=== PATIENT | female | born 1970 | race African-American/Black ===

== ENCOUNTER 2017-02-25 12:54 | Emergency (ER) | payer BC, OTHER ==
[~2017-02-25] VITALS: Ht 154.9 cm; Wt 103.0 kg
[~2017-02-25 12:54] MED LIST: ALBUAER3 INH; AZIT250T3 PO; CYCL1TAB29 PO; DIAZ10 PO; FURO1TAB62 PO; HYDR-3583 PO; LEVO-242 PO; LOSA100T3 PO; MONT10TA2 PO; MUCI30TA2 PO; PHEN37.54 PO; PRED20 PO; PROT40TA PO; SYMB80AE INH; XANA2TAB2 PO
[2017-02-25 12:56] VITALS: BP 171/92; PULSE 87; RESP 14; TEMP 98.2; O2SAT 99
--- NOTE | 2017-02-25 13:14 | PD ---
HPI . acute on chronic neck and upper back pain Chief Complaint: Back/ Neck Pain or Injury Time Seen by Provider: 13:00 Travel History International Travel<30 days: No Contact w/Intl Traveler<30days: No Traveled to known affect area: No History of Present Illness HPI 47-year-old female with history of hypertension, GERD, allergies, asthma, anxiety, chronic pain secondary bulging disc here with complaints of worsening neck/shoulder and upper back pain. Patient says for over the past month and a half she has been having pain in her neck and upper back. She tells me she has been seen by her primary care provider Dr. Subramanian, who has not really done anything about it. Patient says most recently today she went to [facility] and was seen there and was told she would need a CT scan of her upper extremity. She is here telling me that she needs a CT scan. She is complaining of pain in the areas noted above that is severe. She tells me it interfering with her ability to work. She says she is not narcotic seeking and just wants relief and to know what is wrong with her. She denies any recent injury or trauma to the area. [facility] Past Medical History Anemia: Yes Asthma: Yes Anxiety: Yes Depression: Yes Heart Rhythm Problems: No Cardiac Catheterization: No Cardiovascular Problems: Yes (HTN) High Cholesterol: Yes Congestive Heart Failure: No Diabetes: Yes (NO MEDICATIONS) Patient Takes Glucophage: No Diminished Hearing: No Gastrointestinal Disorders: Yes GERD: Yes Herniated Disk: Yes Hypertension: Yes Musculoskeletal: Yes (back and neck) Neurologic: Yes Psychiatric: Yes Reproductive: Yes (FERTILITY ISSUES) Respiratory: Yes (ASTHMA) Immunizations Current: No Sleep Apnea: Yes Triglycerides - High: Yes Tetanus Vaccination: > 5 Years Influenza Vaccination: Yes ?: Not LMP: 01/08/17 : 0 Para: 0 Past Surgical History Cholecystectomy: Yes Coronary Artery Bypass Graft: No Family History Family Myocardial Infarction: No Social History Alcohol Use: Yes (OCCASIONALLY) Tobacco Use: No Substance Use: No Allergies-Medications (Allergen,Severity, Reaction): Coded Allergies: No Known Allergies (Verified , 10/09/16) Reported Meds & Prescriptions Reported Meds & Active Scripts Active Mucinex DM (Dextromethorphan-Guaifenesin) 30-600 Mg Tab 1 Tab PO BID PRN Azithromycin 250 Mg Tab 250 Mg PO DIRECTED Take 2 tabs (500 mg) on day 1 then 1 tab daily x 4 days. Prednisone 20 Mg Tab 40 Mg PO DAILY 4 Days Reported Flexeril (Cyclobenzaprine HCl) 10 Mg Tab 10 Mg PO TID PRN Valium (Diazepam) 10 Mg Tab 10 Mg PO HS PRN Lasix (Furosemide) 20 Mg Tab 10 Mg PO TID PRN Lutera (Levonorgestrel-Ethinyl Estradiol) 0.1-20 mg-mcg Tab 1 Tab PO DAILY Phentermine (Phentermine HCl) 37.5 Mg Cap 18.75 Mg PO DAILY Protonix (Pantoprazole Sodium) 40 Mg Tab 40 Mg PO DAILY Singulair (Montelukast Sodium) 10 Mg Tab 10 Mg PO HS Hydrocodone-Acetaminophen 10-325 mg Tab 1 Tab PO Q6H PRN Losartan-Hydrochlorothiazide 100-12.5 Mg Tab 1 Tab PO DAILY Symbicort Inh (Budesonide/Formoterol Fumarate) 80-4.5 Mcg/Act Aero 2 Puff INH Q12HR Xanax (Alprazolam) 2 Mg Tab 2 Mg PO BID PRN Proair Hfa 8.5 GM Inh (Albuterol Sulfate) 90 Mcg/Act Aer 2 Puff INH Q4-6H PRN 108 mcg/actuation Review of Systems General / Constitutional: No: Fever Eyes: No: Visual changes HENT: No: Headaches Cardiovascular: No: Chest Pain or Discomfort Respiratory: No: Shortness of Breath Gastrointestinal: No: Abdominal Pain Genitourinary: No: Dysuria Musculoskeletal: Positive: Pain (neck and upper back ) Skin: No Rash Neurologic: No: Weakness Psychiatric: No: Depression Endocrine: No: Polydipsia Hematologic/Lymphatic: No: Easy Bruising Physical Exam Narrative GENERAL: AAO x 3, no acute distress, Well-nourished, well-developed patient. SKIN: Warm and dry. No visible rashes or bruising. no palpable masses HEAD: Normocephalic and atraumatic. EYES: No scleral icterus. No injection or drainage. ENT: No nasal drainage noted. Mucous membranes pink. Airway patent. NECK: Supple, trachea midline. No JVD. No c spine tenderness CARDIOVASCULAR: Regular rate and rhythm without murmurs, gallops, or rubs. RESPIRATORY: Breath sounds equal bilaterally. No accessory muscle use. No rhonchi or rales. GASTROINTESTINAL: Abdomen soft, non-tender, nondistended. EXTREMITIES: No cyanosis or edema. FULL ROM b/l UE, normal abduction and adduction, negative rotator cuff tests NEURO: Upper ext b/l strength normal/ managed care liaison strength normal BACK: Nontender without obvious deformity. No CVA tenderness. PSYCH: AAO x 3, normal affect. Data Data Last Documented VS Vital Signs Date Time Temp Pulse Resp B/P Pulse Ox O2 Delivery O2 Flow Rate FiO2 02/25/17 12:56 98.2 87 14 171/92 99 Orders Orphenadrine Inj (Norflex Inj) (02/25/17 13:15) Ketorolac Inj (Toradol Inj) (02/25/17 13:15) MDM Medical Decision Making Medical Screen Exam Complete: Yes Emergency Medical Condition: Yes Medical Record Reviewed: Yes Differential Diagnosis acute on chronic neck and back pain, cervical radiculopathy, less likely c spine fracture Narrative Course 47-year-old female with history of hypertension, GERD, allergies, asthma, anxiety, chronic pain secondary bulging disc here with complaints of worsening neck/shoulder and upper back pain. Patient says for over the past month and a half she has been having pain in her neck and upper back. She tells me she has been seen by her primary care provider Dr. Subramanian, who has not really done anything about it. Patient says most recently today she went to [facility] and was seen there and was told she would need a CT scan of her upper extremity. She is here telling me that she needs a CT scan. She is complaining of pain in the areas noted above that is severe. She tells me it interfering with her ability to work. She says she is not narcotic seeking and just wants relief and to know what is wrong with her. She denies any recent injury or trauma to the area. Patient seen and examined. I do not see any significant findings on her physical exam. I've explained to her that unfortunately I do not see that CT scan is warranted. She does not meet criteria for C-spine imaging per nexus rules. I've advised that ultimately her best bet would be to proceed with an outpatient MRI. It is possible she may have some sort of cervical radiculopathy. She seems to be very upset and tells my nurse that I am not listening to her. I explained that unfortunately this is an issue that can be followed as an outpatient and does not require emergent MRI. Toradol and Norflex in the ED. I offered muscle relaxers for discharge and she declined. I advised patient that she needs to make an appointment with her primary care provider for further workup and recommendations. Diagnosis Primary Impression: Chronic pain Qualified Code: G89.29 - Other chronic pain Additional Impression: Neck pain Patient Instructions: General Instructions Additional Instructions: Please follow-up with her primary care provider for further recommendations and workup. Med/Other Pt SpecificInfo: No Change to Meds Disposition: 01 DISCHARGE HOME Condition: Stable Jimena Schmitz February 25, 2017 13:14 Jimena Schmitz February 25, 2017 13:14
[2017-02-25] MEDS ORDERED: KETOROLAC TROMETHAMINE 60 MG/2 ML (IM) VIAL IM ONE (13:15)
[2017-02-25] MEDS ORDERED: ORPHENADRINE INJ 60 MG/2 ML AMP IM ONE (13:15)
== END 2017-02-25 13:38 | disposition home or self-care (01) ==
LOC: NEPK 12:54
DX: G89.29 Other chronic pain (principal); M54.2 Cervicalgia; M25.519 Pain in unspecified shoulder; J45.909 Unspecified asthma, uncomplicated; D64.9 Anemia, unspecified; I10 Essential (primary) hypertension; E11.9 Type 2 diabetes mellitus without complications
CPT/HCPCS: 96372; 99283; J1885; J2360

== ENCOUNTER 2017-03-19 23:11 | Emergency (ER) | payer OTHER ==
[2017-03-19 23:12] VITALS: BP 170/96; PULSE 94; RESP 16; TEMP 98.9; O2SAT 100
[2017-03-20] MEDS ORDERED: TETANUS/DIPHTHERIA TOXOID ADULT 0.5 ML VIAL IM ONE (00:30)
--- NOTE | 2017-03-20 00:35 | PD ---
HPI Chief Complaint: Laceration/Skin Injury Time Seen by Provider: 00:23 Travel History International Travel<30 days: No Contact w/Intl Traveler<30days: No Traveled to known affect area: No History of Present Illness HPI Patient is a 43-year-old female presenting to emergency for evaluation of a laceration to her left thumb that she sustained while cutting an onion this evening. She also reports left neck and jaw pain that started after she cut herself. She states her jaw feels sore when she opens and closes it. She denies any dysphagia, sore throat, chest pain, shortness of breath, headache. She is uncertain when her last tetanus vaccine was administered. PFSH Past Medical History Anemia: Yes Asthma: Yes Anxiety: Yes Depression: Yes Heart Rhythm Problems: No Cardiac Catheterization: No High Cholesterol: Yes Congestive Heart Failure: No Diabetes: Yes (NO MEDICATIONS) Patient Takes Glucophage: No Diminished Hearing: No GERD: Yes Herniated Disk: Yes Hypertension: Yes Musculoskeletal: Yes (back and neck) Neurologic: Yes Psychiatric: Yes Immunizations Current: No Sleep Apnea: Yes Triglycerides - High: Yes ?: Not : 0 Para: 0 Past Surgical History Cholecystectomy: Yes Coronary Artery Bypass Graft: No Social History Alcohol Use: Yes (OCCASIONALLY) Tobacco Use: No Substance Use: No Allergies-Medications (Allergen,Severity, Reaction): Coded Allergies: No Known Allergies (Verified , 10/09/16) Reported Meds & Prescriptions Reported Meds & Active Scripts Active Mucinex DM (Dextromethorphan-Guaifenesin) 30-600 Mg Tab 1 Tab PO BID PRN Azithromycin 250 Mg Tab 250 Mg PO DIRECTED Take 2 tabs (500 mg) on day 1 then 1 tab daily x 4 days. Prednisone 20 Mg Tab 40 Mg PO DAILY 4 Days Reported Flexeril (Cyclobenzaprine HCl) 10 Mg Tab 10 Mg PO TID PRN Valium (Diazepam) 10 Mg Tab 10 Mg PO HS PRN Lasix (Furosemide) 20 Mg Tab 10 Mg PO TID PRN Lutera (Levonorgestrel-Ethinyl Estradiol) 0.1-20 mg-mcg Tab 1 Tab PO DAILY Phentermine (Phentermine HCl) 37.5 Mg Cap 18.75 Mg PO DAILY Protonix (Pantoprazole Sodium) 40 Mg Tab 40 Mg PO DAILY Singulair (Montelukast Sodium) 10 Mg Tab 10 Mg PO HS Hydrocodone-Acetaminophen 10-325 mg Tab 1 Tab PO Q6H PRN Losartan-Hydrochlorothiazide 100-12.5 Mg Tab 1 Tab PO DAILY Symbicort Inh (Budesonide/Formoterol Fumarate) 80-4.5 Mcg/Act Aero 2 Puff INH Q12HR Xanax (Alprazolam) 2 Mg Tab 2 Mg PO BID PRN Proair Hfa 8.5 GM Inh (Albuterol Sulfate) 90 Mcg/Act Aer 2 Puff INH Q4-6H PRN 108 mcg/actuation Review of Systems Except as stated in HPI: all other systems reviewed are Neg Musculoskeletal: Positive: Myalgias Skin: Positive Other (laceration) Physical Exam Narrative GENERAL: Well-nourished, well-developed patient. SKIN: Focused skin assessment warm/dry. 1 cm superficial abrasion to left thumb on the palmar aspect just over the DIP joint. No active bleeding noted. Patient is neurovascularly intact. HEAD: Normocephalic. ENT: Mucosa pink and moist. No erythema or exudates. No uvular edema. No uvular , palatal, or tonsillar deviation. Airway patent. EYES: No scleral icterus. No injection or drainage. NECK: Supple, trachea midline. No JVD or lymphadenopathy. CARDIOVASCULAR: Regular rate and rhythm without murmurs, gallops, or rubs. RESPIRATORY: Breath sounds equal bilaterally. No accessory muscle use. GASTROINTESTINAL: Abdomen soft, non-tender, nondistended. MUSCULOSKELETAL: No cyanosis, or edema. Mild tenderness to palpation over the left TMJ, no crepitus noted. BACK: Nontender without obvious deformity. No CVA tenderness. Data Data Last Documented VS Vital Signs Date Time Temp Pulse Resp B/P Pulse Ox O2 Delivery O2 Flow Rate FiO2 03/19/17 23:12 98.9 94 16 170/96 100 Room Air Orders Tetanus/Diphtheria Tox Adult (Tetanus/Di (03/20/17 00:30) Support Splint (03/20/17 00:21) MDM Medical Decision Making Medical Screen Exam Complete: Yes Emergency Medical Condition: Yes Interpretation(s) Vital Signs Date Time Temp Pulse Resp B/P Pulse Ox O2 Delivery O2 Flow Rate FiO2 03/19/17 23:12 98.9 94 16 170/96 100 Room Air Differential Diagnosis Abrasion versus laceration versus muscle strain versus muscle spasm versus other Narrative Course Patient is a 47-year-old female presenting for evaluation of a cut to her left thumb and jaw pain. Wound to left thumb is superficial, Band-Aid was applied, wound is clean, patient is neurovascularly intact. Tetanus vaccine will be updated today. Pain in jaw started after she cut her finger likely from clenching her jaw. Patient has no other symptoms to suggest cardiac etiology. She was encouraged to keep wound clean and dry, apply Band-Aid, she will be given a finger splint for comfort. She was encouraged return to emergency department for any new or worsening symptoms. Patient verbalized understanding of instructions. Patient stable for discharge. Diagnosis Primary Impression: Finger abrasion Qualified Code: S60.419A - Finger abrasion, initial encounter Additional Impression: Strain of jaw Referrals: Primary Care Physician Patient Instructions: Abrasion (ED), General Instructions Additional Instructions: Keep wound clean and dry, he may apply topical antibiotic ointment and Band-Aid. Follow-up with your primary doctor Return to emergency department for any new or worsening symptoms Med/Other Pt SpecificInfo: No Change to Meds Disposition: 01 DISCHARGE HOME Condition: Stable Katy Scanlon Mar 20, 2017 00:35
== END 2017-03-20 01:22 | disposition home or self-care (01) ==
LOC: NEPD 23:11
DX: S61.012A Laceration without foreign body of left thumb without damage to nail, initial encounter (principal); W26.0XXA Contact with knife, initial encounter; Y93.G1 Activity, food preparation and clean up; Y92.9 Unspecified place or not applicable; E78.00 Pure hypercholesterolemia, unspecified; I10 Essential (primary) hypertension; G47.30 Sleep apnea, unspecified; Z23 Encounter for immunization
CPT/HCPCS: 29130; 90471; 90714

== ENCOUNTER 2017-12-11 05:35 | Emergency (ER) | payer SELFPAY ==
[~2017-12-11] VITALS: Ht 154.9 cm; Wt 110.0 kg
[~2017-12-11 05:35] MED LIST changes: +CYCL10TA PO; -CYCL1TAB29 PO; +HUMIBIDDM PO; -MUCI30TA2 PO
[2017-12-11 05:37] VITALS: BP 168/91; PULSE 89; RESP 22; TEMP 98.4; O2SAT 99
[2017-12-11 06:11] VITALS: O2SAT 99
[2017-12-11] MEDS ORDERED: RESP: ALBUTEROL 2.5 MG/IPRATROPIUM 0.5 MG NEB (SCH) NEB ONE (06:15)
--- NOTE | 2017-12-11 06:32 | RADRPT ---
EXAM DATE/TIME: 12/11/2017 06:22 [facility] COMPARISON: CHEST SINGLE AP, September 10, 2016, 22:23. INDICATIONS : Shortness of breath and wheezing MEDICAL HISTORY : Diabetes mellitus type II. Gastroesophageal reflux disease. Hyperthyroidism. SURGICAL HISTORY : Cholecystectomy. ENCOUNTER: Initial ACUITY: 1 day PAIN SCORE: 8/10 LOCATION: Bilateral chest FINDINGS: A single view of the chest demonstrates the lungs to be symmetrically aerated without evidence of mas s, infiltrate or effusion. The cardiomediastinal contours are unremarkable. Osseous structures are intact. CONCLUSION: 1. No acute cardiopulmonary disease. Yuri Back MD on December 11, 2017 at 6:31 Board Certified Radiologist. This report was verified electronically.
[2017-12-11] MEDS ORDERED: LEVOFLOXACIN 750 MG TAB PO ONE (06:45)
[2017-12-11] MEDS ORDERED: predniSONE 20 MG TAB PO ONE (06:45)
[2017-12-11] MEDS ORDERED: LEVA750T9 PO (06:49)
--- NOTE | 2017-12-11 06:49 | PD ---
HPI . Respiratory symptoms Chief Complaint: Respiratory Symptoms Time Seen by Provider: 05:57 Travel History International Travel<30 days: No Contact w/Intl Traveler<30days: No Traveled to known affect area: No History of Present Illness HPI 47-year-old female with history of asthma who notes having recurrent upper respiratory infection symptoms for the past 3-4 weeks, has had multiple rounds of steroids, now feels a churning in her mid chest, worse with cough and worse with lying down, is having difficulty sleeping secondary to same. Patient denies any production of cough, denies any leg swelling or leg pain, has no recent sedentary. Her confounding travel. Patient denies any fever, but does note feeling generally ill. Patient's recently became ill as well and tested positive for the flu. Patient states her symptoms are different than her , which seemed to be more of a gastroenteritis PFSH Past Medical History Narrative Medical Past medical history reviewed Anemia: Yes Asthma: Yes Anxiety: Yes Depression: Yes Heart Rhythm Problems: No Cardiac Catheterization: No Cardiovascular Problems: Yes (HTN) High Cholesterol: Yes Congestive Heart Failure: No Diabetes: Yes (NO MEDICATIONS) Patient Takes Glucophage: No Diminished Hearing: No Gastrointestinal Disorders: Yes GERD: Yes Heparin Induced Thrombocytopen: No Herniated Disk: Yes Hypertension: Yes Musculoskeletal: Yes (back and neck) Neurologic: Yes Psychiatric: Yes Reproductive: Yes (FERTILITY ISSUES) Respiratory: Yes (ASTHMA) Immunizations Current: No Sleep Apnea: Yes Triglycerides - High: Yes ?: Not : 0 Para: 0 Past Surgical History Cholecystectomy: Yes Coronary Artery Bypass Graft: No Family History Family Myocardial Infarction: No Social History Alcohol Use: Yes (OCCASIONALLY) Tobacco Use: No Substance Use: No Allergies-Medications (Allergen,Severity, Reaction): Coded Allergies: No Known Allergies (Verified Adverse Reaction, Unknown, 12/11/17) Reported Meds & Prescriptions Reported Meds & Active Scripts Active Mucinex DM (Dextromethorphan-Guaifenesin) 30-600 Mg Tab 1 Tab PO BID PRN Azithromycin 250 Mg Tab 250 Mg PO DIRECTED Take 2 tabs (500 mg) on day 1 then 1 tab daily x 4 days. Prednisone 20 Mg Tab 40 Mg PO DAILY 4 Days Reported Flexeril (Cyclobenzaprine HCl) 10 Mg Tab 10 Mg PO TID PRN Valium (Diazepam) 10 Mg Tab 10 Mg PO HS PRN Lasix (Furosemide) 20 Mg Tab 10 Mg PO TID PRN Lutera (Levonorgestrel-Ethinyl Estradiol) 0.1-20 mg-mcg Tab 1 Tab PO DAILY Phentermine (Phentermine HCl) 37.5 Mg Cap 18.75 Mg PO DAILY Protonix (Pantoprazole Sodium) 40 Mg Tab 40 Mg PO DAILY Singulair (Montelukast Sodium) 10 Mg Tab 10 Mg PO HS Hydrocodone-Acetaminophen 10-325 mg Tab 1 Tab PO Q6H PRN Losartan-Hydrochlorothiazide 100-12.5 Mg Tab 1 Tab PO DAILY Symbicort Inh (Budesonide/Formoterol Fumarate) 80-4.5 Mcg/Act Aero 2 Puff INH Q12HR Xanax (Alprazolam) 2 Mg Tab 2 Mg PO BID PRN Proair Hfa 8.5 GM Inh (Albuterol Sulfate) 90 Mcg/Act Aer 2 Puff INH Q4-6H PRN 108 mcg/actuation Narrative Medication Allergies and medications reviewed Review of Systems Except as stated in HPI: all other systems reviewed are Neg General / Constitutional: No: Fever Eyes: No: Visual changes HENT: No: Headaches Cardiovascular: No: Chest Pain or Discomfort Respiratory: Positive: Cough, Shortness of Breath, Wheezing, No: Sneezing, Orthopnea, Hemoptysis, Stridor, Night Sweats, Pleuritic Pain Gastrointestinal: No: Abdominal Pain Genitourinary: No: Dysuria Musculoskeletal: No: Pain Skin: No Rash Neurologic: No: Weakness Psychiatric: No: Depression Endocrine: No: Polydipsia Hematologic/Lymphatic: No: Easy Bruising Physical Exam Narrative GENERAL: Awake and alert, oriented 3, no acute distress. Vital signs afebrile normal and stable SKIN: Warm and dry. Color is normal diaphoresis cyanosis or pallor HEAD: Atraumatic. Normocephalic. EYES: Pupils equal and round. No scleral icterus. No injection or drainage. ENT: No nasal bleeding or discharge. Mucous membranes pink and moist. NECK: Trachea midline. No JVD. Supple full range of motion CARDIOVASCULAR: Regular rate and rhythm. S1-S2 no murmurs rubs or gallops RESPIRATORY: Prolonged expiratory phase, wheezing heard all son, rhonchi centrally with forced exhalation, cough only. Equal bilateral excursions. GASTROINTESTINAL: Abdomen soft, non-tender, nondistended. Hepatic and splenic margins not palpable. MUSCULOSKELETAL: Extremities without clubbing, cyanosis, or edema. No obvious deformities. NEUROLOGICAL: Awake and alert. No obvious focal deficit PSYCHIATRIC: Appropriate mood and affect; insight and judgment normal. Data Data Last Documented VS Vital Signs Date Time Temp Pulse Resp B/P (MAP) Pulse Ox O2 Delivery O2 Flow Rate FiO2 12/11/17 06:11 99 21 12/11/17 05:37 98.4 89 22 168/91 (116) Orders Orders Albuterol-Ipratropium Neb (Duoneb Neb) (12/11/17 06:15) Chest, Single Ap (12/11/17 ) Influenzae A/B Antigen (12/11/17 06:01) Levofloxacin (Levaquin) (12/11/17 06:45) Prednisone (Deltasone) (12/11/17 06:45) MDM Medical Decision Making Medical Screen Exam Complete: Yes Emergency Medical Condition: Yes Medical Record Reviewed: Yes Differential Diagnosis Acute bronchitis, upper respiratory infection, pneumonia, influenza Narrative Course Chest x-ray right perihilar infiltrate consistent with early pneumonia. Patient notes interval improvement with albuterol Atrovent treatment. Patient started on Levaquin 750 mg p.o. Patient given 1 dose of prednisone 60 mg p.o. Will not continue secondary to concomitant use of fluoroquinolones and recent use of steroids without significant improvement. Diagnosis Primary Impression: Pneumonia Qualified Codes: J18.1 - Lobar pneumonia, unspecified organism Patient Instructions: Bacterial Pneumonia (ED), General Instructions Additional Instructions: Take Levaquin 750 mg daily for 10 days. Drink plenty of fluids. Albuterol inhaler 2 puffs every 4-6 hours as needed for shortness of breath/wheezing/ cough. Follow-up with your doctor. Return promptly for worsening Scripts Levofloxacin (Levaquin) 750 Mg Tablet 750 MG PO DAILY for Infection, #9 TAB 0 Refills Prov: Olu Ellington MD 12/11/17 Disposition: DISCHARGE HOME Condition: Stable Olu Ellington MD Dec 11, 2017 06:49
[2017-12-11 07:02] VITALS: BP 145/86; PULSE 82; RESP 18; O2SAT 100
[2017-12-11] MEDS ORDERED: ZITHTAB PO (07:29)
[2017-12-11] MEDS ORDERED: MEDR4PAK PO (07:29)
[2017-12-11] MEDS ORDERED: ONDANSETRON HCL 4 MG/2 ML VIAL IM ONE (07:30)
[2017-12-11] MEDS ORDERED: ONDANSETRON HCL 4 MG/2 ML VIAL IV PUSH ONE (07:30)
== END 2017-12-11 07:44 | disposition home or self-care (01) ==
LOC: NEPC 05:35
DX: J18.1 Lobar pneumonia, unspecified organism (principal); J45.909 Unspecified asthma, uncomplicated; I10 Essential (primary) hypertension
CPT/HCPCS: 71045; 87804; 94664; 96372; 99284; J2405; J7512

== ENCOUNTER 2017-12-17 06:26 | Emergency (ER) | payer BC ==
[~2017-12-17] VITALS: Ht 154.9 cm; Wt 106.5 kg
[~2017-12-17 06:26] MED LIST changes: +MEDR4PAK PO; +ZITHTAB PO
[2017-12-17 06:32] VITALS: BP 154/90; PULSE 88; RESP 20; TEMP 98.6; O2SAT 100
[2017-12-17] MEDS ORDERED: FLUT1SPR5 EACH NARE (06:48)
[2017-12-17] MEDS ORDERED: ACETAMINOPHEN 325 MG TAB PO ONE (07:30)
--- NOTE | 2017-12-17 07:32 | PD ---
HPI Chief Complaint: Cold / Flu Symptoms Time Seen by Provider: 07:12 Travel History International Travel<30 days: No Contact w/Intl Traveler<30days: No Traveled to known affect area: No History of Present Illness HPI 47yo F with PMH of asthma presents to the ED with c/o persistent cough and now throat pain since yesterday. Pt was seen on 12/11/17 and was given levaquin for early pneumonia. Pt's official CXR showed no acute cardiopulmonary disease. Pt said her was diagnosed with the flu after and wants to be tested. Denies any fever, drooling, chest pain, sob, n/v, abdominal pain, focal weakness or numbness. PFSH Past Medical History Anemia: Yes Asthma: Yes Anxiety: Yes Depression: Yes Heart Rhythm Problems: No Cardiac Catheterization: No Cardiovascular Problems: Yes (HTN, RBBB) High Cholesterol: Yes Congestive Heart Failure: No Diabetes: Yes (NO MEDICATIONS) Diminished Hearing: No Gastrointestinal Disorders: Yes GERD: Yes Heparin Induced Thrombocytopen: No Herniated Disk: Yes Hypertension: Yes Musculoskeletal: Yes (back and neck) Neurologic: Yes Psychiatric: Yes Reproductive: Yes (FERTILITY ISSUES) Respiratory: Yes (Asthma, Bronchitits) Immunizations Current: No Sleep Apnea: Yes Triglycerides - High: Yes Tetanus Vaccination: < 5 Years Influenza Vaccination: Yes ?: Not LMP: 12/02/17 : 0 Para: 0 Past Surgical History Cholecystectomy: Yes Coronary Artery Bypass Graft: No Social History Alcohol Use: Yes (OCCASIONALLY) Tobacco Use: No Substance Use: No Allergies-Medications (Allergen,Severity, Reaction): Coded Allergies: No Known Allergies (Verified Adverse Reaction, Unknown, 12/17/17) Reported Meds & Prescriptions Reported Meds & Active Scripts Active Deltasone (Prednisone) 20 Mg Tab 20 Mg PO BID 5 Days Ventolin Hfa 18 GM Inh (Albuterol Sulfate) 90 Mcg/Act Aer 2 Puff INH Q4H PRN Reported Flonase Nasal [place] (Fluticasone Nasal [place]) 50 Mcg/Act [place] 100 Mcg EACH NARE BID Flexeril (Cyclobenzaprine HCl) 10 Mg Tab 10 Mg PO TID PRN Valium (Diazepam) 10 Mg Tab 10 Mg PO HS PRN Lasix (Furosemide) 20 Mg Tab 10 Mg PO TID PRN Lutera (Levonorgestrel-Ethinyl Estradiol) 0.1-20 mg-mcg Tab 1 Tab PO DAILY Phentermine (Phentermine HCl) 37.5 Mg Cap 18.75 Mg PO DAILY Protonix (Pantoprazole Sodium) 40 Mg Tab 40 Mg PO DAILY Singulair (Montelukast Sodium) 10 Mg Tab 10 Mg PO HS Hydrocodone-Acetaminophen 10-325 mg Tab 1 Tab PO Q6H PRN Losartan-Hydrochlorothiazide 100-12.5 Mg Tab 1 Tab PO DAILY Symbicort Inh (Budesonide/Formoterol Fumarate) 80-4.5 Mcg/Act Aero 2 Puff INH Q12HR Xanax (Alprazolam) 2 Mg Tab 2 Mg PO BID PRN Proair Hfa 8.5 GM Inh (Albuterol Sulfate) 90 Mcg/Act Aer 2 Puff INH Q4-6H PRN 108 mcg/actuation Review of Systems Except as stated in HPI: all other systems reviewed are Neg Physical Exam Narrative GENERAL: 47yo F not in distress. SKIN: Focused skin assessment warm/dry. HEAD: Atraumatic. Normocephalic. EYES: Pupils equal and round. No scleral icterus. No injection or drainage. ENT: Throat: Clear. Uvula midline. No tonsillar exudate. NECK: Trachea midline. No JVD. No cervical lymphadenopathy ttp. CARDIOVASCULAR: Regular rate and rhythm. No murmur appreciated. RESPIRATORY: Expiratory wheezing bilaterally. Speaking in complete sentences. GASTROINTESTINAL: Abdomen soft, non-tender, nondistended. MUSCULOSKELETAL: No obvious deformities. No clubbing. No cyanosis. No edema. NEUROLOGICAL: Awake and alert. No obvious cranial nerve deficits. Motor grossly within normal limits. Normal speech. PSYCHIATRIC: Appropriate mood and affect; insight and judgment normal. Data Data Last Documented VS Vital Signs Date Time Temp Pulse Resp B/P (MAP) Pulse Ox O2 Delivery O2 Flow Rate FiO2 12/17/17 06:32 98.6 88 20 154/90 (111) 100 Orders Orders Chest, Single Ap (12/17/17 07:26) Albuterol-Ipratropium Neb (Duoneb Neb) (12/17/17 07:30) Prednisone (Deltasone) (12/17/17 09:00) Influenzae A/B Antigen (12/17/17 07:26) Group A Rapid Strep Screen (12/17/17 07:26) Soft Tissue Neck (12/17/17 ) Acetaminophen (Tylenol) (12/17/17 07:30) Strep Culture (Group A) (12/17/17 07:32) MDM Medical Decision Making Medical Screen Exam Complete: Yes Emergency Medical Condition: Yes Differential Diagnosis Asthma exacerbation vs. pneumonia vs. URI vs. influenza Narrative Course 47yo F with asthma here with wheezing and persistent coughing. Pt is well appearing and speaking in complete sentences. Influenza negative. Group A strep negative. CXR negative. Xray soft tissue neck showed degenerative changes cervical spine otherwise negative. Pt given acetaminophen, duonebs x3, and prednisone. Pt reevaluated at bedside and feels better. Normal PO intake. Pt has symbicort at home but needs prescription for ventolin. Return precautions given. Diagnosis Primary Impression: Asthma exacerbation Qualified Codes: J45.31 - Mild persistent asthma with (acute) exacerbation Patient Instructions: General Instructions Departure Forms: Tests/Procedures, Work Release Enter return to work date: Dec 19, 2017 Additional Instructions: Please follow up with your primary care physician in 2-3 days. Return to the ED if symptoms worsen. Med/Other Pt SpecificInfo: Prescription(s) given Scripts Prednisone (Deltasone) 20 Mg Tab 20 MG PO BID for 5 Days, #10 TAB 0 Refills Prov: Shantel Long DO 12/17/17 Albuterol 18 GM Inh (Ventolin Hfa 18 GM Inh) 90 Mcg/Act Aer 2 PUFF INH Q4H Y for SHORTNESS OF BREATH, #1 INHALER 0 Refills Prov: Shantel Long DO 12/17/17 Disposition: 01 DISCHARGE HOME Condition: Stable Shantel Long DO Dec 17, 2017 07:32
[2017-12-17] MEDS: RESP: ALBUTEROL 2.5 MG/IPRATROPIUM 0.5 MG NEB (SCH) INH (07:33)
--- NOTE | 2017-12-17 08:52 | RADRPT ---
EXAM DATE/TIME: 12/17/2017 08:38 [facility] COMPARISON: No previous studies available for comparison. INDICATIONS : Sore throat. Cough. MEDICAL HISTORY : Diabetes mellitus type II. Gastroesophageal reflux disease. Hyperthyroidism. SURGICAL HISTORY : Cholecystectomy. ENCOUNTER: Initial ACUITY: 1 week PAIN SCORE: 4/10 LOCATION: neck. FINDINGS: Two view examination of the soft tissues of the neck demonstrates the hypopharyngeal airway to have a grossly normal configuration. Degenerative changes cervical spine The trachea is midline. No radio paque foreign bodies are seen. CONCLUSION: Degenerative changes cervical spine otherwise negative.. Rogelio Roberts MD FACR on December 17, 2017 at 8:51 Board Certified Radiologist. This report was verified electronically.
--- NOTE | 2017-12-17 08:52 | RADRPT ---
EXAM DATE/TIME: 12/17/2017 08:37 [facility] COMPARISON: CHEST SINGLE AP, December 11, 2017, 6:22. INDICATIONS : <<Cough and shortness of breath. >> MEDICAL HISTORY : Diabetes mellitus type II. Gastroesophageal reflux disease. Hyperthyroid ism. SURGICAL HISTORY : Cholecystectomy. ENCOUNTER: Initial ACUITY: 1 week PAIN SCORE: 2/10 LOCATION: Bilateral chest FINDINGS: A single view of the chest demonstrates the lungs to be symmetrically aerated without evidence of mas s, infiltrate or effusion. The cardiomediastinal contours are unremarkable. Osseous structures are intact. CONCLUSION: No acute disease. Rogelio Roberts MD FACR on December 17, 2017 at 8:51 Board Certified Radiologist. This report was verified electronically.
[2017-12-17] MEDS ORDERED: predniSONE 20 MG TAB PO SCH (09:00)
[2017-12-17] MEDS ORDERED: PRED-503 PO (09:44)
[2017-12-17] MEDS ORDERED: VENTAER INH (09:44)
== END 2017-12-17 10:24 | disposition home or self-care (01) ==
LOC: NEPC 06:26
DX: J45.31 Mild persistent asthma with (acute) exacerbation (principal); K21.9 Gastro-esophageal reflux disease without esophagitis; I10 Essential (primary) hypertension
CPT/HCPCS: 70360; 71045; 87081; 87804; 87880; 94640; 94664; 99284; J7512

== ENCOUNTER 2018-09-09 19:24 | Inpatient (IN) ==
[2018-09-09] MEDS ORDERED: Ketorolac Inj 30 MG/ML (IVP) Vial IV.PUSH ONE (21:20)
[2018-09-09] MEDS ORDERED: Famotidine PF Inj 20 MG/2 ML Vial IV.PUSH ONE (21:20)
[2018-09-09] MEDS ORDERED: Dicyclomine Inj 20 MG/2 ML Ampul IM ONE (21:20)
[2018-09-09] MEDS ORDERED: Sod Chloride 0.9% Inj 1,000 ML IV.CONT SCH (21:30)
--- NOTE | 2018-09-09 21:37 | ED ---
HPI General Chief Complaint: Abdominal Pain Stated Complaint: abdominal pain, vomitting Time Seen by Provider: 09/09/18 21:07 Source: patient Mode of arrival: ambulatory Limitations: no limitations History of Present Illness HPI narrative: 48-year-old female complains of abdominal pain, nausea vomiting diarrhea. Patient dates her symptoms started 5 days ago. Patient was seen in emergency room 5 days ago and again 3 days ago. Patient had blood test done. Patient has CT scan of thoracic abdominal aorta done. Possible pneumonia on the left lower lobe. Patient was discharged home with prescription for Carafate and Z-Alexy. Patient states that the pain got better and get worse again today. Patient has intermittent nausea vomiting diarrhea and upper abdominal pain. Patient stated the pain is cramping pain burning pain and sharp pain localized to upper abdomen and epigastric area. Patient denies any pain radiation. Patient denies any dysuria frequency. Patient denies any vaginal discharge or bleeding. Patient denies any back pain. Patient has history of fibromyalgia, chronic back pain, anxiety, hypertension, asthma, status post cholecystectomy. MD complaint: Reports abdominal pain Onset (ago): day(s) Pain Consistency: intermittent Location: Reports epigastric Severity: moderate Severity scale (1-10): 7 Quality: Reports cramping, aching, sharp and burning Radiation: Reports none Migration to: Reports no migration Relieving factors: nothing Exacerbating factors: nothing Associated symptoms: Reports nausea, vomiting and diarrhea Treatments prior to arrival: Reports prescription analgesics Related Data Home Medications Medication Instructions Recorded Confirmed alprazolam [Xanax] 2 mg PO BID 07/22/18 09/10/18 dextroamphetamine-amphetamine 30 mg PO DAILY 07/22/18 09/10/18 [Adderall] furosemide 20 mg PO DAILY 07/22/18 09/10/18 hydrocodone-acetaminophen 1 tab PO Q6H PRN 07/22/18 09/10/18 levonorgestrel-ethinyl estrad 1 tab PO DAILY 07/22/18 09/10/18 [Aviane] losartan-hydrochlorothiazide 1 tab PO DAILY 07/22/18 09/10/18 pantoprazole 40 mg PO DAILY 07/22/18 09/10/18 diazepam 10 mg PO ACHS PRN 09/10/18 09/10/18 montelukast [Singulair] 10 mg PO QPM 09/10/18 09/10/18 Previous Rx's Medication Instructions Recorded fluticasone [Flonase Allergy 1 spray EACH NARE BID #9.9 g 07/22/18 Relief] dicyclomine 20 mg PO QID #10 tab 09/04/18 Allergies Allergy/AdvReac Type Severity Reaction Status Date / Time No Known Allergies Allergy Verified 09/06/18 19:34 Review of Systems ROS: all other systems reviewed are negative PMFSH History History Provided By: Patient Medical History Medical History Anxiety (Acute) Asthma (Acute) Chronic back pain (Acute) Fibromyalgia (Acute) HTN (hypertension) (Acute) Surgical History Surgical History Hx of cholecystectomy (Acute) Social History Social History Substance History: No History of Abuse Second Hand Smoke Exposure: No Smoking Status: Never smoker How Often Do You Have a Drink Containing Alcohol: Never Recent Travel in [facility] within the Last 8 Weeks: No Recent Out of Country Travel within the Last 8 Weeks: No Exam Narrative Exam Narrative: GENERAL: Well-nourished, well-developed patient. SKIN: Focused skin assessment warm/dry. HEAD: Normocephalic. EYES: No scleral icterus. No injection or drainage. NECK: Supple, trachea midline. No JVD or lymphadenopathy. CARDIOVASCULAR: Regular rate and rhythm without murmurs, gallops, or rubs. RESPIRATORY: Breath sounds equal bilaterally. No accessory muscle use. GASTROINTESTINAL: Abdomen soft, nondistended. Patient has mild diffuse tenderness over epigastric and upper abdomen. No rebound tenderness. No mass. MUSCULOSKELETAL: No cyanosis, or edema. BACK: Nontender without obvious deformity. No CVA tenderness. Neurologic exam normal. Course Initial Documented Vital Signs Temperature 97.9 F 09/09/18 20:23 Pulse Rate 85 09/09/18 20:23 Respiratory Rate 20 09/09/18 20:23 Blood Pressure 172/84 H 09/09/18 20:23 Pulse Oximetry 99 09/09/18 20:23 Last Documented Vital Signs Temperature 97.9 F 09/10/18 11:42 Pulse Rate 88 09/10/18 11:42 Respiratory Rate 18 09/10/18 11:42 Blood Pressure 142/74 H 09/10/18 11:42 Pulse Oximetry 99 09/10/18 11:42 Medical Decision Making MDM Narrative Medical decision making narrative: 48-year-old female with upper abdominal pain , nausea vomiting diarrhea. Normal saline solution 125 cc an hour. Bentyl 20 mg IM. Pepcid 20 mg IV. Zofran 4 mg IV. Toradol 30 mg IV. Medical Screen Exam Complete: Yes Emergency Medical Condition: Yes Differential Diagnosis Differential Diagnosis: Differential diagnosis including gastroenteritis, gastritis, PUD, pancreatitis, colitis, UTI, pyelonephritis, nephrolithiasis, pneumonia. Lab Data Lab results reviewed: Yes I reviewed the patient's lab results. Result diagrams: 09/09/18 21:30 09/09/18 22:25 Lab Results 09/09/18 09/09/18 Range/Units 21:30 22:25 WBC 11.6 H (4.0-11.0) th/mm3 RBC 5.82 H (4.00-5.30) mil/mm3 Hgb 14.1 (11.6-15.3) gm/dL Hct 41.0 (35.0-46.0) % MCV 70.5 L (80.0-100.0) fL MCH 24.3 L (27.0-34.0) pg MCHC 34.5 (32.0-36.0) % RDW 14.1 (11.6-17.2) % Plt Count 292 (150-450) th/mm3 MPV 7.8 (7.0-11.0) fL Neut % (Auto) 75.1 H (16.0-70.0) % Lymph % (Auto) 15.3 (9.0-44.0) % [place] % (Auto) 6.9 (0.0-8.0) % Eos % (Auto) 2.3 (0.0-4.0) % Baso % (Auto) 0.4 (0.0-2.0) % Neut # (Auto) 8.7 H (1.8-7.7) th/mm3 Lymph # (Auto) 1.8 (1.0-4.8) th/mm3 [place] # (Auto) 0.8 (0.0-0.9) th/mm3 Eos # (Auto) 0.3 (0.0-0.4) th/mm3 Baso # (Auto) 0.0 (0.0-0.2) th/mm3 WBC Differential . Differential Comment Auto diff final Sodium 138 (136-145) meq/L Potassium 3.7 (3.5-5.1) meq/L Chloride 102 (98-107) meq/L Carbon Dioxide 32.6 H (21.0-32.0) meq/L Anion Gap 3 L (5-15) meq/L BUN 7 (7-18) mg/dL Creatinine 0.85 (0.50-1.00) mg/dL Estimated GFR 87 L (>89) mL/min Random Glucose 105 (74-106) mg/dL Calcium 7.8 L (8.5-10.1) mg/dL Total Bilirubin 0.3 (0.2-1.0) mg/dL AST 55 H (15-37) U/L ALT 71 H (10-53) U/L Alkaline Phosphatase 69 (45-117) U/L Total Protein 7.1 (6.4-8.2) g/dL Albumin 2.9 L (3.4-5.0) g/dL Lipase 698 H (73-393) U/L Imaging Data Radiologist's impression: Abdomen/Pelvis CT 09/09/18 21:20 CONCLUSION: 1. No acute findings. Previous cholecystectomy. Sigmoid diverticula without diverticulitis. Discharge Plan Discharge Disposition Patient Disposition: 30 Still Patient Discharge Details Diagnosis: Pancreatitis Physicians Team ED Provider: Vasquez Baez Primary Care Provider: Jacy Hamlin Attending Provider: Brian Landin Discharge Interventions Interventions: ED Discharge Assessment Last Done: 09/10/18 05:42 Vital Signs Last Done: 09/09/18 21:53 Status ED Status: Left Department Discharge Information Discharge Date/Time: 09/10/18 03:30
[2018-09-09 21:47] LABS: Baso % (Auto) 0.4 % (0.0-2.0); Eos # (Auto) 0.3 th/mm3 (0.0-0.4); Eos % (Auto) 2.3 % (0.0-4.0); Hemoglobin 14.1 gm/dL (11.6-15.3); Lymph # (Auto) 1.8 th/mm3 (1.0-4.8); Lymph % (Auto) 15.3 % (9.0-44.0); Mean Corpuscular HGB Conc 34.5 % (32.0-36.0); Mean Corpuscular Hemoglobin 24.3 pg (27.0-34.0); Mean Corpuscular Volume 70.5 fL (80.0-100.0); Mean Platelet Volume 7.8 fL (7.0-11.0); Mono # (Auto) 0.8 th/mm3 (0.0-0.9); Mono % (Auto) 6.9 % (0.0-8.0); Neut # (Auto) 8.7 th/mm3 (1.8-7.7); Neut % (Auto) 75.1 % (16.0-70.0); Platelet Count 292 th/mm3 (150-450); Red Blood Count 5.82 mil/mm3 (4.00-5.30); Red Cell Distribution Width 14.1 % (11.6-17.2); White Blood Count 11.6 th/mm3 (4.0-11.0)
[2018-09-09 23:13] LABS: Alanine Aminotransferase 71 U/L (10-53); Albumin 2.9 g/dL (3.4-5.0); Alkaline Phosphatase 69 U/L (45-117); Anion Gap 3 meq/L (5-15); Aspartate Aminotransferase 55 U/L (15-37); Blood Urea Nitrogen 7 mg/dL (7-18); Calcium 7.8 mg/dL (8.5-10.1); Carbon Dioxide 32.6 meq/L (21.0-32.0); Chloride 102 meq/L (98-107); Glomerular Filtration Rate 87 mL/min (>89); Glucose,Random 105 mg/dL (74-106); Lipase 698 U/L (73-393); Potassium 3.7 meq/L (3.5-5.1); Sodium 138 meq/L (136-145); Total Protein 7.1 g/dL (6.4-8.2)
[2018-09-09] MEDS ORDERED: Morphine Sulfate Inj 2 MG/ML Vial IV.PUSH ONE (23:57)
--- NOTE | 2018-09-10 00:11 | CT ---
EXAM DATE: 09/09/2018 11:47 PM EST AGE/SEX: 48 years / Female INDICATIONS: Upper abdominal pain. CLINICAL DATA: This is the patient's initial encounter. Patient reports that signs and symptoms have been present for 1 day and indicates a pain score of 7/10. MEDICAL/SURGICAL HISTORY: Asthma. Hypertension. Cholecystectomy. ORAL CONTRAST: No oral contrast ingested. RADIATION DOSE: 27.14 CTDI (mGy) ; Patient body habitus [place] [facility] [place] 05/27/2018. . TECHNIQUE: Multiple contiguous axial images were obtained through the abdomen and pelvis following b olus infusion of 95 ml Omnipaque 350 (iohexol) nonionic water-soluble contrast as a single exam dos e. No oral contrast ingested. Using automated exposure control and adjustment of the mA and/or kV ac cording to patient size, radiation dose was kept as low as reasonably achievable to obtain optimal di agnostic quality images. DICOM format image data is available electronically for review and comparis on. FINDINGS: Lung bases are clear. No acute findings in the liver, spleen, adrenals, kidneys or pancreas. Previous cholecystectomy. No free fluid. No bowel obstruction. No adenopathy. No acute bony abnormalities. Colonic diverticula without diverticulitis. Small hiatal hernia. Small fat-containing umbilical hernia. CONCLUSION: 1. No acute findings. Previous cholecystectomy. Sigmoid diverticula without diverticulitis. Electronically signed by: Jeff Wilhelm MD 09/10/2018 12:10 AM EST
[2018-09-10] MEDS ORDERED: Bisacodyl 10 MG Supp RECTAL PRN (01:09)
[2018-09-10] MEDS ORDERED: Acetaminophen 325 MG Tablet PO PRN (01:09)
--- NOTE | 2018-09-10 01:11 | P.HPIM ---
History of Present Illness Primary Care Physician: Jacy Hamlin MD History of Present Illness: This is a 48-year-old female with a PMH of Anxiety, Fibromyalgia, Chronic Back Pain, Asthma and HTN who presents the ER with complaints of abdominal pain, nausea, vomiting and diarrhea x5 days. This is her 3rd ER presentation for the same. Seen on 09/04/18 and thought to have gastroenteritis, d/c'd home w/ Zofran and Dicyclomine. Returned on 09/06/18 w/ ongoing complaints, Lipase 72 at that time, CTA Aorta w/ normal aorta, early/mild left base pneumonia, d/c'd w / Carafate and Zithro, presented again today for ongoing complaints. Lipase today 698. Denies fever or chills. On arrival, BP 172/84, HR 85, O2 sat 99% on RA, Afebrile. Chemistry essentially unremarkable. LFTs mildly increased in comparison to previous labs. Lipase 698, previously 72 on 09/06/2018. CT Abdomen/Pelvis with no acute findings. S/p Zofran, Pepcid, Morphine and Bentyl w/ some improvement, however persistent nausea/vomiting. - Diagnosis (1) Pancreatitis (2) Intractable nausea and vomiting (3) Leukocytosis Review of Systems PAST FAMILY HISTORY: Reviewed. No h/o DM or CAD All other systems reviewed negative except as stated in HPI PMFSH - History History Provided By: Patient - Medical History Medical History: Medical History (Last Reviewed 09/09/18 @ 21:30 by Vasquez Baez MD) Anxiety Asthma Chronic back pain Fibromyalgia HTN (hypertension) - Surgical History Surgical History: Surgical History (Last Reviewed 09/09/18 @ 21:31 by Vasquez Baez MD) Hx of cholecystectomy - Tobacco History Second Hand Smoke Exposure: No Smoking Status: Never smoker - Alcohol History How Often Do You Have a Drink Containing Alcohol: Monthly or less - Substance Use History Substance History: Past History - Travel History Recent Travel in the [place] Within the Last 8 Weeks: No Recent Travel Out of the Country Within the Last 8 Weeks: No - Immunization History Tetanus Immunization: >5 Years Medications and Allergies Active Medications: Active Medications Sodium Chloride (Ns Inj) 1,000 mls @ 125 mls/hr IV.CONT .Q8H SUMMER Stop: 09/10/18 05:29 Last Admin: 09/09/18 21:46 Dose: 125 mls/hr Allergies Allergy/AdvReac Type Severity Reaction Status Date / Time No Known Allergies Allergy Verified 09/06/18 19:34 Home Medications Medication Instructions Recorded Confirmed Type alprazolam [Xanax] 2 mg PO BID 07/22/18 09/06/18 History dextroamphetamine-amphetamine 30 mg PO DAILY 07/22/18 09/06/18 History [Adderall] furosemide 20 mg PO DAILY 07/22/18 09/06/18 History hydrocodone-acetaminophen 1 tab PO Q6H PRN 07/22/18 09/06/18 History levonorgestrel-ethinyl estrad 1 tab PO DAILY 07/22/18 09/06/18 History [Aviane] losartan-hydrochlorothiazide 1 tab PO DAILY 07/22/18 09/06/18 History montelukast [Singulair] 5 mg PO QPM 07/22/18 09/06/18 History pantoprazole 40 mg PO DAILY 07/22/18 09/06/18 History Exam Vital signs: Vital Signs 09/09/18 20:23 09/09/18 21:53 Temperature 97.9 F Pulse Rate 85 Respiratory Rate 20 Blood Pressure 172/84 H 178/96 H Pulse Oximetry 99 Intake & Output 09/09/18 09/09/18 09/10/18 06:59 18:59 06:59 Weight 83.915 kg Narrative: PE: GENERAL: Very pleasant young black female in no acute distress. SKIN: Focused skin assessment warm and dry. HEENT: PERRLA, EOMI. No scleral icterus or conjunctival pallor. No lid lag or facial droop. CARDIOVASCULAR: Regular rate and rhythm. No obvious murmurs to auscultation. No chest tenderness to palpation. RESPIRATORY: No obvious rhonchi or wheezing. Clear to auscultation. Breath sounds equal bilaterally. GASTROINTESTINAL: Abdomen soft, mild epigastric tenderness to palpation, nondistended. BS normal. MUSCULOSKELETAL: Extremities without clubbing, cyanosis, or edema. No obvious deformities. NEUROLOGICAL: Awake, alert and oriented x4. No focal neurologic deficits. Moving both upper and lower extremities spontaneously. PSYCHIATRIC: Appropriate mood and affect. Insight and judgment normal. Results - Labs CBC & Chem 7: 09/09/18 21:30 09/09/18 22:25 Labs: Short CBC 09/09/18 Range/Units 21:30 WBC 11.6 H (4.0-11.0) th/mm3 Hgb 14.1 (11.6-15.3) gm/dL Hct 41.0 (35.0-46.0) % Plt Count 292 (150-450) th/mm3 BMP 09/09/18 22:25 Sodium 138 Potassium 3.7 Chloride 102 Carbon Dioxide 32.6 H BUN 7 Creatinine 0.85 Calcium 7.8 L Liver Function 09/09/18 Range/Units 22:25 Total Bilirubin 0.3 (0.2-1.0) mg/dL AST 55 H (15-37) U/L ALT 71 H (10-53) U/L Alkaline Phosphatase 69 (45-117) U/L Albumin 2.9 L (3.4-5.0) g/dL - Imaging Impressions Abdomen/Pelvis CT 09/09/18 21:20 CONCLUSION: 1. No acute findings. Previous cholecystectomy. Sigmoid diverticula without diverticulitis. Caprini VTE Risk Assessment Caprini VTE Risk Assessment: No/Low Risk (score <= 1) Caprini Risk Assessment Model: Point Value = 1 Point Value = 2 Point Value = 3 Point Value = 5 Age 41-60 Minor surgery BMI > 25 kg/m2 Swollen legs Varicose veins or History of unexplained or recurrent spontaneous Oral contraceptives or hormone replacement Sepsis (< 1 month) Serious lung disease, including pneumonia (< 1 month) Abnormal pulmonary function Acute myocardial infarction Congestive heart failure (< 1 month) History of inflammatory bowel disease Medical patient at bed rest Age 61-74 Arthroscopic surgery Major open surgery (> 45 min) Laparoscopic surgery (> 45 min) Malignancy Confined to bed (> 72 hours) Immobilizing plaster cast Central venous access Age >= 75 History of VTE Family history of VTE Factor V Leiden Prothrombin [id number] Lupus anticoagulant Anticardiolipin antibodies Elevated serum homocysteine Heparin-induced thrombocytopenia Other congenital or acquired thrombophilia Stroke (< 1 month) Elective arthroplasty Hip, pelvis, or leg fracture Acute spinal cord injury (< 1 month) Prophylaxis Regimen: Total Risk Factor Score Risk Level Prophylaxis Regimen 0-1 Low Early ambulation 2 Moderate Order ONE of the following: *Sequential Compression Device (SCD) *Heparin 5000 units SQ BID 3-4 Higher Order ONE of the following medications: *Heparin 5000 units SQ TID *Enoxaparin/Lovenox 40 mg SQ daily (WT < 150 kg, CrCl > 30 mL/min) *Enoxaparin/Lovenox 30 mg SQ daily (WT < 150 kg, CrCl > 10-29 mL/min) *Enoxaparin/Lovenox 30 mg SQ BID (WT < 150 kg, CrCl > 30 mL/min) AND/OR *Sequential Compression Device (SCD) 5 or more Highest Order ONE of the following medications: *Heparin 5000 units SQ TID (Preferred with Epidurals) *Enoxaparin/Lovenox 40 mg SQ daily (WT < 150 kg, CrCl > 30 mL/min) *Enoxaparin/Lovenox 30 mg SQ daily (WT < 150 kg, CrCl > 10-29 mL/min) *Enoxaparin/Lovenox 30 mg SQ BID (WT < 150 kg, CrCl > 30 mL/min) AND *Sequential Compression Device (SCD) Assessment and Plan - Assessment (1) Pancreatitis Code(s): K85.90 - Acute pancreatitis without necrosis or infection, unspecified Status: Acute (2) Intractable nausea and vomiting Code(s): R11.2 - Nausea with vomiting, unspecified Status: Acute (3) Leukocytosis Code(s): D72.829 - Elevated white blood cell count, unspecified Status: Acute - Plan A/P: 1. Pancreatitis: Lipase 698, previously 72 on 09/06/18, 3rd ER presentation for similar complaints, CT Abd/Pelvis w/ no acute findings, images reviewed. S/ p Morphine, Zofran, Pepcid and Bentyl w/ some improvement. NPO, IVF, continue analgesics/antiemetics. 2. Intractable NV: secondary to above, Zofran, Compazine as needed, Protonix IV. IVF for hydration. 3. Leukocytosis: WBC 11.6, previously 11.0 on 09/06/18, Afebrile. Will monitor, repeat labs in am. 4. DVT Prophylaxis: SCD/Teds 5. Social work for d/c planning as needed. 6. Case discussed w/ ER physician at length, labs/records/imaging reviewed by me.
[2018-09-10] MEDS: Sod Chloride 0.9% Inj 1,000 ML IV.CONT SCH ×2 (06:00→14:57)
[2018-09-10] MEDS: Senna/Docusate Sodium 8.6/50 MG Tablet PO SCH (08:50)
--- NOTE | 2018-09-10 09:49 | P.PN ---
Subjective Interval history: Follow-up for pancreatitis, abdominal pain, nausea/vomiting, diarrhea. Patient reports feeling slightly better today. States her abdominal pain has improved. She reports occasional nausea, but no vomiting since arrival. She states she continues to have multiple episodes of watery diarrhea daily. She states prior to symptom onset, she was [place] the [place], did eat some chicken, but denies any known sick contacts. She would like to attempt some oral intake today. She has no other medical complaints at this time. Denies any new medications. Denies any NSAID use. Physical Exam Vital signs: Vital Signs 09/09/18 20:23 09/09/18 21:53 09/10/18 03:17 Temperature 97.9 F Pulse Rate 85 80 Respiratory Rate 20 18 Blood Pressure 172/84 H 178/96 H 143/77 H Pulse Oximetry 99 09/10/18 04:00 09/10/18 07:24 Temperature 98.5 F 98.5 F Pulse Rate 81 94 H Respiratory Rate 17 16 Blood Pressure 134/89 129/85 Pulse Oximetry 96 98 Intake & Output 09/09/18 09/10/18 09/10/18 18:59 06:59 18:59 Intake Total 1300 / 1300 Balance 1300 / 1300 Weight 83.915 kg Intake: IV 1000 / 1000 NS Inj 1,000 ML @ 125 mls/hr IV 1000 / 1000 .CONT .Q8H [facility] Rx#:[id number] Other 300 / 300 Other: Other Intake Source Saline Solution Date of Last Bowel Movement 09/10/18 Weight On Admission 83.915 kg Narrative: GENERAL: Well-nourished, well-developed pleasant middle-aged female patient in [facility]. SKIN: Warm and dry. No rash. HEENT: Normocephalic. Atraumatic. Pupils equal and round. Mucous membranes pink and moist. CARDIOVASCULAR: Regular rate and rhythm. No murmur appreciated. RESPIRATORY: No accessory muscle use. Clear to auscultation. Breath sounds equal bilaterally. GASTROINTESTINAL: Abdomen soft, nondistended, mild epigastric TTP. Normoactive bowel sounds x4. MUSCULOSKELETAL: No obvious deformities. Extremities without clubbing, cyanosis , or edema. NEUROLOGICAL: Awake and alert. No obvious cranial nerve deficits. Motor grossly within normal limits. Moving all extremities spontaneously. Normal speech. PSYCHIATRIC: Appropriate mood and affect; insight and judgment normal. Results - Labs CBC & Chem 7: 09/09/18 21:30 09/09/18 22:25 Laboratory Results - last 24 hr 09/09/18 09/09/18 21:30 22:25 WBC 11.6 H RBC 5.82 H Hgb 14.1 Hct 41.0 MCV 70.5 L MCH 24.3 L MCHC 34.5 RDW 14.1 Plt Count 292 MPV 7.8 Neut % (Auto) 75.1 H Lymph % (Auto) 15.3 [place] % (Auto) 6.9 Eos % (Auto) 2.3 Baso % (Auto) 0.4 Neut # (Auto) 8.7 H Lymph # (Auto) 1.8 [place] # (Auto) 0.8 Eos # (Auto) 0.3 Baso # (Auto) 0.0 WBC Differential . Differential Comment Auto diff final Sodium 138 Potassium 3.7 Chloride 102 Carbon Dioxide 32.6 H Anion Gap 3 L BUN 7 Creatinine 0.85 Estimated GFR 87 L Random Glucose 105 Calcium 7.8 L Total Bilirubin 0.3 AST 55 H ALT 71 H Alkaline Phosphatase 69 Total Protein 7.1 Albumin 2.9 L Lipase 698 H - Imaging Impressions Abdomen/Pelvis CT 09/09/18 21:20 CONCLUSION: 1. No acute findings. Previous cholecystectomy. Sigmoid diverticula without diverticulitis. Assessment and Plan - Assessment (1) Pancreatitis Code(s): K85.90 - Acute pancreatitis without necrosis or infection, unspecified Status: Acute (2) Intractable nausea and vomiting Code(s): R11.2 - Nausea with vomiting, unspecified Status: Acute (3) Leukocytosis Code(s): D72.829 - Elevated white blood cell count, unspecified Status: Acute - Plan 48-year-old female with a PMH of Anxiety, Fibromyalgia, Chronic Back Pain, Asthma and HTN who presents the ER with complaints of abdominal pain, nausea, vomiting and diarrhea x5 days. This is her 3rd ER presentation for the same. Seen on 09/04/18 and thought to have gastroenteritis, d/c'd home w/ Zofran and Dicyclomine. Returned on 09/06/18 w/ ongoing complaints, Lipase 72 at that time , CTA Aorta w/ normal aorta, early/mild left base pneumonia, d/c'd w/ Carafate and Zithro, presented again today for ongoing complaints. Lipase today 698. Acute Pancreatitis: Lipase 698, previously 72 on 09/06/18, 3rd ER presentation for similar complaints -CT Abd/Pelvis w/ no acute findings, images reviewed. -S/p Morphine, Zofran, Pepcid and Bentyl w/ some improvement. -Continue Protonix -Kept NPO, now advanced to clear liquid diet today -Give IVF, analgesics/antiemetics prn. -Repeat labs in am Gastroenteritis/Diarrhea: acute, patient with multiple episodes of diarrhea daily -check stool studies -give IVF hydration -monitor for improvement Leukocytosis: WBC 11.6, previously 11.0 on 09/06/18, Afebrile. -Will monitor, repeat labs in am. Anxiety/Fibromyalgia/Chronic Back Pain: chronic -[facility] Prescription Drug Monitoring Database has been queried and verified prior to prescribing the controlled substance. -Continue patient's xanax prn, diazepam prn hs, norco prn DVT Prophylaxis: SCD/Teds (1) Pancreatitis Qualifiers: Chronicity: acute Pancreatitis type: other Acute pancreatitis complication: no infection or necrosis Qualified Code(s): K85.80 - Other acute pancreatitis without necrosis or infection
[2018-09-10] MEDS: Amphetamine/Dextroamphetamine 30 MG Tablet PO SCH (16:29)
[2018-09-10] MEDS: Montelukast 10 MG Tablet PO SCH (17:33)
[2018-09-11] MEDS: Sod Chloride 0.9% Inj 1,000 ML IV.CONT SCH ×3 (00:44→19:27)
[2018-09-11] MEDS: Senna/Docusate Sodium 8.6/50 MG Tablet PO SCH ×3 (00:47→22:37)
[2018-09-11 08:12] LABS: Baso % (Auto) 0.2 % (0.0-2.0); Eos # (Auto) 0.8 th/mm3 (0.0-0.4); Eos % (Auto) 8.5 % (0.0-4.0); Hematocrit 37.7 % (35.0-46.0); Hemoglobin 12.1 gm/dL (11.6-15.3); Lymph # (Auto) 2.3 th/mm3 (1.0-4.8); Lymph % (Auto) 24.8 % (9.0-44.0); Mean Corpuscular HGB Conc 32.1 % (32.0-36.0); Mean Corpuscular Hemoglobin 23.5 pg (27.0-34.0); Mean Corpuscular Volume 73.1 fL (80.0-100.0); Mean Platelet Volume 7.4 fL (7.0-11.0); Mono # (Auto) 0.7 th/mm3 (0.0-0.9); Mono % (Auto) 8.1 % (0.0-8.0); Neut # (Auto) 5.3 th/mm3 (1.8-7.7); Neut % (Auto) 58.4 % (16.0-70.0); Platelet Count 249 th/mm3 (150-450); Red Blood Count 5.16 mil/mm3 (4.00-5.30); Red Cell Distribution Width 14.3 % (11.6-17.2); White Blood Count 9.2 th/mm3 (4.0-11.0)
[2018-09-11 08:31] LABS: Alanine Aminotransferase 53 U/L (10-53); Albumin 2.6 g/dL (3.4-5.0); Anion Gap 6 meq/L (5-15); Aspartate Aminotransferase 31 U/L (15-37); Blood Urea Nitrogen 6 mg/dL (7-18); Calcium 7.3 mg/dL (8.5-10.1); Chloride 105 meq/L (98-107); Glomerular Filtration Rate Greater Than 89 mL/min (>89); Glucose,Random 84 mg/dL (74-106); Lipase 63 U/L (73-393); Sodium 139 meq/L (136-145)
[2018-09-11 08:34] LABS: Alkaline Phosphatase 68 U/L (45-117); Total Protein 6.1 g/dL (6.4-8.2)
[2018-09-11 08:41] LABS: Potassium 2.7 meq/L (3.5-5.1)
--- NOTE | 2018-09-11 10:25 | P.PN ---
Subjective Interval history: Follow-up for pancreatitis, gastroenteritis, hypokalemia, diarrhea. The patient reports continued intractable watery nonbloody diarrhea approximately every 2 hours. States her abdominal pain is improving, just some mild epigastric discomfort. Denies any further nausea or vomiting. Denies fevers or chills. She has tolerated some clear liquids, agrees to advancing to full liquids this morning. Does not feel ready for discharge at this time. Patient did admit today to using BC powder at home for her headaches. Physical Exam Vital signs: Vital Signs 09/10/18 11:42 09/10/18 20:00 09/11/18 00:00 Temperature 97.9 F 98.4 F 99.2 F Pulse Rate 88 87 89 Respiratory Rate 18 18 16 Blood Pressure 142/74 H 160/85 H 126/78 Pulse Oximetry 99 100 95 09/11/18 04:00 09/11/18 08:00 09/11/18 08:30 Temperature 98.3 F 98.1 F Pulse Rate 72 89 Respiratory Rate 20 18 Blood Pressure 142/93 H 109/53 L 170/87 H Pulse Oximetry 94 L 98 Intake & Output 09/10/18 09/11/18 09/11/18 18:59 06:59 18:59 Intake Total 1000 / 1000 1000 / 1000 Balance 1000 / 1000 1000 / 1000 Intake: IV 1000 / 1000 1000 / 1000 NS Inj 1,000 ML @ 100 mls/hr IV 1000 / 1000 1000 / 1000 .CONT .Q10H [facility] Rx#:[id number] Other: # Voids 2 Date of Last Bowel Movement 09/11/18 Narrative: GENERAL: Well-nourished, well-developed pleasant middle-aged female patient in [facility]. SKIN: Warm and dry. No rash. HEENT: Normocephalic. Atraumatic. Pupils equal and round. Mucous membranes pink and moist. CARDIOVASCULAR: Regular rate and rhythm. No murmur appreciated. RESPIRATORY: No accessory muscle use. Clear to auscultation. Breath sounds equal bilaterally. GASTROINTESTINAL: Abdomen soft, nondistended, nontender today. Normoactive bowel sounds x4. MUSCULOSKELETAL: No obvious deformities. Extremities without clubbing, cyanosis , or edema. NEUROLOGICAL: Awake and alert. No obvious cranial nerve deficits. Motor grossly within normal limits. Moving all extremities spontaneously. Normal speech. PSYCHIATRIC: Appropriate mood and affect; insight and judgment normal. Results - Labs CBC & Chem 7: 09/11/18 07:20 09/11/18 07:20 Laboratory Results - last 24 hr 09/10/18 09/11/18 09/11/18 14:13 07:20 07:20 WBC 9.2 RBC 5.16 Hgb 12.1 D Hct 37.7 MCV 73.1 L MCH 23.5 L MCHC 32.1 RDW 14.3 Plt Count 249 MPV 7.4 Neut % (Auto) 58.4 Lymph % (Auto) 24.8 [place] % (Auto) 8.1 H Eos % (Auto) 8.5 H Baso % (Auto) 0.2 Neut # (Auto) 5.3 Lymph # (Auto) 2.3 [place] # (Auto) 0.7 Eos # (Auto) 0.8 H Baso # (Auto) 0.0 WBC Differential . Differential Comment Auto diff final Sodium 139 Potassium 2.7 L* D Chloride 105 Carbon Dioxide 28.0 Anion Gap 6 BUN 6 L Creatinine 0.80 Estimated GFR Greater than 89 Random Glucose 84 Calcium 7.3 L* Calcium Adj for Albumin 7.8 L Total Bilirubin 0.2 AST 31 ALT 53 Alkaline Phosphatase 68 Total Protein 6.1 L D Albumin 2.6 L Lipase 63 L Stl C.difficile DNA Amp Negative St C. diff Tox Epid 027 Negative - Imaging Impressions Abdomen/Pelvis CT 09/09/18 21:20 CONCLUSION: 1. No acute findings. Previous cholecystectomy. Sigmoid diverticula without diverticulitis. Assessment and Plan - Assessment (1) Pancreatitis Code(s): K85.90 - Acute pancreatitis without necrosis or infection, unspecified Status: Acute (2) Intractable nausea and vomiting Code(s): R11.2 - Nausea with vomiting, unspecified Status: Acute (3) Leukocytosis Code(s): D72.829 - Elevated white blood cell count, unspecified Status: Acute - Plan 48-year-old female with a PMH of Anxiety, Fibromyalgia, Chronic Back Pain, Asthma and HTN who presents the ER with complaints of abdominal pain, nausea, vomiting and diarrhea x5 days. This is her 3rd ER presentation for the same. Seen on 09/04/18 and thought to have gastroenteritis, d/c'd home w/ Zofran and Dicyclomine. Returned on 09/06/18 w/ ongoing complaints, Lipase 72 at that time , CTA Aorta w/ normal aorta, early/mild left base pneumonia, d/c'd w/ Carafate and Zithro, presented again today for ongoing complaints. Lipase 698. Acute Pancreatitis: Lipase 698, previously 72 on 09/06/18, 3rd ER presentation for similar complaints -CT Abd/Pelvis w/ no acute findings, images reviewed. -S/p Morphine, Zofran, Pepcid and Bentyl w/ some improvement. -Continue Protonix -Give IVF, analgesics/antiemetics prn. -Repeat labs show improvement with lipase 63 -Kept NPO initially, now advanced to full liquid diet today Gastroenteritis/Diarrhea: acute, patient with multiple episodes of diarrhea daily -C. difficile negative, stool studies negative for enteric pathogens -Continue IVF hydration -Start lactinex tid and Imodium prn -monitor for improvement Hypokalemia: K 2.7 today, secondary to diarrhea -give IV KCl and po KCl replacement -check magnesium -repeat labs in am Leukocytosis: WBC 11.6, previously 11.0 on 09/06/18, Afebrile. -repeat labs show improvement with WBC 9.2K Anxiety/Fibromyalgia/Chronic Back Pain: chronic -[facility] Prescription Drug Monitoring Database has been queried and verified prior to prescribing the controlled substance. -Continue patient's xanax prn, diazepam prn hs, norco prn DVT Prophylaxis: SCD/Teds Discharge Planning: Discharge pending further clinical improvement, likely d/c 09/12. (1) Pancreatitis Qualifiers: Chronicity: acute Pancreatitis type: other Acute pancreatitis complication: no infection or necrosis Qualified Code(s): K85.80 - Other acute pancreatitis without necrosis or infection
[2018-09-11] MEDS: Amphetamine/Dextroamphetamine 30 MG Tablet PO SCH (10:39)
[2018-09-11] MEDS: Potassium Chlor 20 mEq Premix 20 MEQ/100 ML PIGGYBACK IV.SIG SCH ×2 (11:45→14:11)
[2018-09-11] MEDS ORDERED: Loperamide 2 MG Capsule PO PRN (11:48)
[2018-09-11] MEDS: Lactobacillus Acidophilus/L. Spores Tablet PO SCH ×2 (12:59→19:27)
[2018-09-11] MEDS: Mag Sulf 1 gm/100 ml Premix 100 ML IV.SIG SCH ×2 (17:01→19:26)
[2018-09-11] MEDS: Montelukast 10 MG Tablet PO SCH (19:27)
[2018-09-12] MEDS: Sod Chloride 0.9% Inj 1,000 ML IV.CONT SCH ×2 (03:47→13:36)
[2018-09-12] MEDS: Senna/Docusate Sodium 8.6/50 MG Tablet PO SCH (08:30)
[2018-09-12] MEDS: Lactobacillus Acidophilus/L. Spores Tablet PO SCH ×2 (08:30→13:34)
[2018-09-12] MEDS: Amphetamine/Dextroamphetamine 30 MG Tablet PO SCH (08:30)
--- NOTE | 2018-09-12 10:26 | P.DS ---
Date of admission: 09/11/18 11:03 Primary care physician: Jacy Hamlin MD Attending physician on discharge: Brian Landin Anticipated date of discharge: 09/12/18 Brief History from admission: This is a 48-year-old female with a PMH of Anxiety, Fibromyalgia, Chronic Back Pain, Asthma and HTN who presents the ER with complaints of abdominal pain, nausea, vomiting and diarrhea x5 days. This is her 3rd ER presentation for the same. Seen on 09/04/18 and thought to have gastroenteritis, d/c'd home w/ Zofran and Dicyclomine. Returned on 09/06/18 w/ ongoing complaints, Lipase 72 at that time, CTA Aorta w/ normal aorta, early/mild left base pneumonia, d/c'd w / Carafate and Zithro, presented again today for ongoing complaints. Lipase today 698. Denies fever or chills. On arrival, BP 172/84, HR 85, O2 sat 99% on RA, Afebrile. Chemistry essentially unremarkable. LFTs mildly increased in comparison to previous labs. Lipase 698, previously 72 on 09/06/2018. CT Abdomen/Pelvis with no acute findings. S/p Zofran, Pepcid, Morphine and Bentyl w/ some improvement, however persistent nausea/vomiting. Patient update on day of discharge: Follow-up for gastroenteritis. The patient reports feeling much better today. She has not had any diarrhea today. Denies any abdominal pain. Denies any nausea or vomiting. She tolerated regular food last night. She feels ready for discharge today. DS: Diagnosis - Discharge Diagnosis (1) Pancreatitis Status: Acute (2) Intractable nausea and vomiting Status: Acute (3) Leukocytosis Status: Acute DS: Summary Hospital Course: 48-year-old female with a PMH of Anxiety, Fibromyalgia, Chronic Back Pain, Asthma and HTN who presents the ER with complaints of abdominal pain, nausea, vomiting and diarrhea x5 days. This is her 3rd ER presentation for the same. Seen on 09/04/18 and thought to have gastroenteritis, d/c'd home w/ Zofran and Dicyclomine. Returned on 09/06/18 w/ ongoing complaints, Lipase 72 at that time , CTA Aorta w/ normal aorta, early/mild left base pneumonia, d/c'd w/ Carafate and Zithro, presented again today for ongoing complaints. Lipase 698. Acute Pancreatitis: Lipase 698, previously 72 on 09/06/18, 3rd ER presentation for similar complaints. CT Abd/Pelvis w/ no acute findings, images reviewed. S/ p Morphine, Zofran, Pepcid and Bentyl w/ some improvement. Continued Protonix. Given IVF, analgesics/antiemetics prn. Repeat labs show improvement with lipase 63. Kept NPO initially, progressed to regular diet, patient tolerated well, stable for discharge. Gastroenteritis/Diarrhea: acute, patient with multiple episodes of diarrhea daily. Suspect viral gastroenteritis. C. difficile negative, stool studies negative for enteric pathogens. Continued IVF hydration. Started lactinex tid and Imodium prn. Bowel movements improved, no diarrhea on day of discharge. Stable. Hypokalemia/Hypomagnesemia: K 2.7, Mag 1.3, secondary to diarrhea. Given IV KCl and po KCl replacement. Repeat labs improved with K 3.3 and mag 1.8. Given additional po KCl replacement prior to discharge. Leukocytosis: WBC 11.6, previously 11.0 on 09/06/18, Afebrile. Repeat labs show improvement with WBC 9.2K. Anxiety/Fibromyalgia/Chronic Back Pain: chronic. [facility] Prescription Drug Monitoring Database has been queried and verified prior to prescribing the controlled substance. Continued patient's xanax prn, diazepam prn hs, norco prn - Time Spent with Patient Total time spent providing and/or coordinating discharge services: Less than 30 minutes - Quality: VTE Deep Vein Thrombosis/Pulmonary Embolism Present on Admission: No Exam Vital signs: Vital Signs 09/11/18 12:00 09/11/18 16:00 09/11/18 20:00 Temperature 98.2 F 97.6 F Pulse Rate 87 83 76 Respiratory Rate 16 18 18 Blood Pressure 144/71 H 133/73 131/82 Pulse Oximetry 96 98 100 09/12/18 00:00 09/12/18 03:43 09/12/18 07:44 Temperature 98.2 F 98.4 F 98.7 F Pulse Rate 95 H 82 90 Respiratory Rate 18 18 20 Blood Pressure 134/83 137/68 140/73 Pulse Oximetry 99 100 96 Intake & Output 09/11/18 09/12/18 09/12/18 18:59 06:59 18:59 Intake Total 1300 / 1300 1100 / 1100 Balance 1300 / 1300 1100 / 1100 Intake: IV 1300 / 1300 1100 / 1100 NS Inj 1,000 ML @ 100 mls/hr IV 1000 / 1000 1000 / 1000 .CONT .Q10H [facility] Rx#:[id number] Magnesium Sulfate 1 gm/D5W 100 100 / 100 100 / 100 ml Premix 100 ML @ 100 mls/hr IV.SIG Q1H [facility] Rx#:[id number] KCl 20 mEq Premix Inj 20 meq In 200 / 200 100 ml @ 50 mls/hr IV.SIG Q2H [facility] Rx#:[id number] Other: # Voids 2 1 Date of Last Bowel Movement 09/11/18 Narrative: GENERAL: Well-nourished, well-developed pleasant middle-aged female patient in [facility]. SKIN: Warm and dry. No rash. HEENT: Normocephalic. Atraumatic. Pupils equal and round. Mucous membranes pink and moist. CARDIOVASCULAR: Regular rate and rhythm. No murmur appreciated. RESPIRATORY: No accessory muscle use. Clear to auscultation. Breath sounds equal bilaterally. GASTROINTESTINAL: Abdomen soft, nondistended, nontender today. Normoactive bowel sounds x4. MUSCULOSKELETAL: No obvious deformities. Extremities without clubbing, cyanosis , or edema. NEUROLOGICAL: Awake and alert. No obvious cranial nerve deficits. Moving all extremities spontaneously. Normal speech. PSYCHIATRIC: Appropriate mood and affect; insight and judgment normal. Results Procedures completed during hospitalization: None. Labs on day of discharge: Labs from last 24 hours 09/12/18 09/11/18 09:39 07:20 Sodium Pending Potassium Pending Chloride Pending Carbon Dioxide Pending Anion Gap Pending BUN Pending Creatinine Pending Random Glucose Pending Calcium Pending Magnesium Pending 1.3 L - Impressions ITS Impressions Abdomen/Pelvis CT 09/09/18 21:20 CONCLUSION: 1. No acute findings. Previous cholecystectomy. Sigmoid diverticula without diverticulitis. Discharge Plan - Discharge Disposition Patient Disposition: 01 Discharge Home - Discharge Condition Condition: Stable - Discharge Order Discharge Orders: Discharge Order (Routine); Ordered 09/12/18 Ordered By: Stacy Lindquist - Discharge Details Anticipated Discharge Date: 09/12/18 Discharge Comment: Ok to discharge after given potassium. - Physicians Team Primary Care Provider: Jacy Hamlin Attending Provider: Brian Landin
[2018-09-12 10:45] LABS: Anion Gap 5 meq/L (5-15); Blood Urea Nitrogen 4 mg/dL (7-18); Calcium 7.6 mg/dL (8.5-10.1); Carbon Dioxide 30.6 meq/L (21.0-32.0); Chloride 106 meq/L (98-107); Glomerular Filtration Rate Greater Than 89 mL/min (>89); Glucose,Random 94 mg/dL (74-106); Magnesium 1.8 mg/dL (1.5-2.5); Potassium 3.3 meq/L (3.5-5.1); Sodium 142 meq/L (136-145)
== END 2018-09-12 14:31 | disposition home or self-care (01) ==
LOC: NEPD 19:24 → NEDA 19:24 → NEPHCDU 09-10 03:30
PROVIDERS: ADMIT Hospitalist; ATTEND Hospitalist
CPT/HCPCS: 74177; 80048; 80053; 83690; 83735; 85025; 87493; 87506; J0500; J1885; J2270; J2405; J3475; J3480; J7030; Q9967